=== PATIENT | female | born 1980 | race Caucasian/White ===

== ENCOUNTER → 2017-10-25 | Outpatient (CLI) | payer OTHER ==
[2017-10-25 17:09] LABS: Specimen Source VAGINAL
[2017-10-26 13:33] LABS: Source VAGINAL
[2017-10-26 14:02] LABS: Source VAGINAL
[2017-11-07 08:58] LABS: Source Vaginal/Cervical
[2017-11-08 14:53] LABS: HPV Genotype 16 Not Detected (NOTDET); HPV Genotype 18 Not Detected (NOTDET); HPV High Risk Other Detected (NOTDET)
== END ==
LOC: LAB SHORT 17:00
PROVIDERS: Advanced Practice Midwife
DX: Z01.419 Encounter for gynecological examination (general) (routine) without abnormal findings (principal); Z11.3 Encounter for screening for infections with a predominantly sexual mode of transmission
CPT/HCPCS: 87491; 87591; 87625; G0123

== ENCOUNTER → 2017-12-14 | Outpatient (CLI) | payer OTHER | END | disposition home or self-care (01) | LOC: LAB SHORT 13:05 → PLD 13:05 | DX: R87.810 Cervical high risk human papillomavirus (HPV) DNA test positive (principal) | CPT/HCPCS: 88305 ==